=== PATIENT | male | born 1990 | race Two or more races ===

== ENCOUNTER 2020-01-16 11:29 | Emergency (ER) | payer MEDICAID ==
[~2020-01-16] VITALS: Ht 175.3 cm; Wt 100.0 kg
[2020-01-16] MEDS ORDERED: LEVO75 PO (11:43)
[2020-01-16] MEDS ORDERED: LIDOCAINE 5% TRANSDERMAL PATCH TD ONE (12:15)
[2020-01-16] MEDS ORDERED: METHOCARBAMOL 500 MG TABLET PO ONE (12:15)
[2020-01-16] MEDS ORDERED: IBUPROFEN 800 MG TABLET PO ONE (12:15)
[2020-01-16 14:00] VITALS: BP 139/86
== END 2020-01-16 14:47 | disposition home or self-care (01) ==
LOC: EMS 11:40
DX: M54.6 Pain in thoracic spine (principal); E03.0 Congenital hypothyroidism with diffuse goiter; E03.9 Hypothyroidism, unspecified

== ENCOUNTER 2020-02-09 11:50 | Emergency (ER) | payer MEDICAID ==
[~2020-02-09] VITALS: Ht 175.3 cm; Wt 103.6 kg
[~2020-02-09 11:50] MED LIST: LEVO75 PO
[2020-02-09 13:07] VITALS: BP 118/72
[2020-02-09] MEDS ORDERED: KETOROLAC TROMETHAMINE 60 MG/2 ML VIAL IM ONE (14:45)
== END 2020-02-09 14:50 | disposition home or self-care (01) ==
LOC: EMS 11:50
DX: M54.6 Pain in thoracic spine (principal); E03.9 Hypothyroidism, unspecified; Z79.899 Other long term (current) drug therapy

== ENCOUNTER 2020-03-14 15:16 | Emergency (ER) | payer MEDICAID ==
[~2020-03-14] VITALS: Ht 175.3 cm; Wt 100.0 kg
[2020-03-14 16:05] LABS: HEMATOCRIT 44.3 % (41-53); HEMOGLOBIN 15.3 g/dL (13.5-17.5); LYMPHOCYTES # (AUTO) 2.9 K/uL (1.0-4.8); LYMPHOCYTES % (AUTO) 32.5 % (22.0-44.0); MEAN CORPUSCULAR HEMOGLOBIN 31.2 pg (26.0-34.0); MEAN CORPUSCULAR HGB CONC 34.6 G/dL (31.0-37.0); MEAN CORPUSCULAR VOLUME 90 fL (80-100); MONOCYTES # (AUTO) 0.9 K/uL (0.1-1.0); MONOCYTES % (AUTO) 10.5 % (2.0-9.0); NEUTROPHILS # (AUTO) 4.8 K/uL (1.8-7.7); PLATELET COUNT (AUTO) 260 K/uL (150-450); RED BLOOD CELL COUNT(AUTO) 4.92 MIL/uL (4.50-5.90); RED CELL DISTRIBUTION WIDTH 12.5 % (11.5-14.5)
[2020-03-14 16:17] LABS: ANION GAP 11 mmol/L (8-16); CALCIUM, TOTAL 9.5 mg/dL (8.8-10.5); CARBON DIOXIDE 28 mmol/L (22-29); CHLORIDE 103 mmol/L (98-107); CREATININE 1.08 mg/dL (0.60-1.30); GLOMERULAR FILTR. RATE CALC > 60 mL/min (>60); GLUCOSE,RANDOM 97 mg/dL (70-110); POTASSIUM 3.6 mmol/L (3.5-5.1); SODIUM SERUM 142 mmol/L (136-145); UREA NITROGEN, BLOOD 17 mg/dL (7-18)
[2020-03-14 16:23] LABS: ALBUMIN 4.5 g/dL (3.4-5.0); ALKALINE PHOSPHATASE 59 U/L (46-116); BILIRUBIN,TOTAL 1.1 mg/dL (0.1-1.0); TOTAL PROTEIN, SERUM 7.7 g/dL (6.4-8.2)
[2020-03-14 17:13] LABS: ASPARTATE AMINOTRANSFERASE 132 U/L (15-37)
[2020-03-14 17:14] LABS: ALANINE AMINOTRANSFERASE 304 U/L (12-78)
[2020-03-14] MEDS: ACETAMINOPHEN 500 MG TABLET PO ONE (17:57)
[2020-03-14] MEDS: LIDOCAINE 5% TRANSDERMAL PATCH TD ONE (17:58)
[2020-03-14] MEDS: KETOROLAC TROMETHAMINE 30 MG/ML VIAL IM ONE (17:58)
[2020-03-14 18:51] VITALS: BP 136/81
== END 2020-03-14 18:50 | disposition home or self-care (01) ==
LOC: EMS 15:25
DX: F41.9 Anxiety disorder, unspecified (principal); M54.9 Dorsalgia, unspecified; R74.0 Nonspecific elevation of levels of transaminase and lactic acid dehydrogenase [LDH]
CPT/HCPCS: 36415; 71045; 80053; 84484; 85025; 93005; 96372; 99285; J1885

== ENCOUNTER 2021-07-15 16:28 | Emergency (ER) | payer MEDICAID | END 2021-07-15 17:29 | disposition left against medical advice (07) | LOC: EMS 16:28 | DX: R07.9 Chest pain, unspecified (principal); Z53.21 Procedure and treatment not carried out due to patient leaving prior to being seen by health care provider ==